=== PATIENT | male | born 1960 | race Caucasian/White ===

== ENCOUNTER 2021-04-09 13:49 | Emergency (ER) | payer BC, SELFPAY ==
[~2021-04-09] VITALS: Ht 170.2 cm; Wt 72.0 kg
[2021-04-09] MEDS ORDERED: LORazepam 2 mg/ml vial IV ONE (13:55)
--- NOTE | 2021-04-09 14:20 | NUR ---
seizure pads on.
--- NOTE | 2021-04-09 14:27 | NUR ---
pt to ct.
[2021-04-09 14:30] LABS: BASOPHILS # (AUTO) 0.1 X10'3 (0-0.2); BASOPHILS % (AUTO) 0.5 % (0-1); EOSINOPHILS # (AUTO) 0.1 X10'3 (0-0.9); EOSINOPHILS % (AUTO) 1.1 % (0-6); HEMATOCRIT 45.5 % (42.0-52.0); HEMOGLOBIN 14.6 g/dl (14.0-17.9); LYMPHOCYTES # (AUTO) 4.2 X10'3 (1.1-4.8); LYMPHOCYTES % (AUTO) 31.7 % (21-51); MEAN CORPUSCULAR HEMOGLOBIN 30.3 PG (27.0-31.0); MEAN CORPUSCULAR VOLUME 94.6 FL (78-98); MEAN PLATELET VOLUME 8.4 FL (7.4-10.4); MONOCYTES % (AUTO) 7.1 % (2-12); NEUTROPHILS % (AUTO) 59.6 % (42-75); PLATELET COUNT 237 X10'3 (140-440); RED BLOOD COUNT 4.81 X10'6 (4.70-6.10); RED CELL DISTRIBUTION WIDTH 13.6 % (11.5-14.5); WHITE BLOOD COUNT 13.4 X10'3 (4.5-11.0)
[2021-04-09] MEDS ORDERED: Levetiracetam-NS 500mg/100ml 100 ML IV STA (14:33)
[2021-04-09 14:44] LABS: PARTIAL THROMBOPLASTIN TIME 29 SECONDS (22-32)
[2021-04-09] MEDS: magnesium 2GM in 50ml NS 50 ML IV SCH ×2 (14:48→16:37)
[2021-04-09 14:51] LABS: ALANINE AMINOTRANSFERASE 26 U/L (12-78); ALBUMIN 4.2 G/DL (3.4-5.0); ALKALINE PHOSPHATASE 79 IU/L (46-116); ANION GAP 33 (8-16); ASPARTATE AMINO TRANSFERASE 25 U/L (10-37); BILIRUBIN,TOTAL 0.6 MG/DL (0.1-1.0); BLOOD UREA NITROGEN 18 MG/DL (7-18); BUN/CREATININE RATIO 10.9 (5.4-32.0); CALCIUM 9.2 MG/DL (8.5-10.1); CHLORIDE 99 MMOL/L (99-107); CREATININE 1.65 MG/DL (0.60-1.10); ETHANOL < 0.010 GM/DL (0.0-0.010); GLUCOSE 99 MG/DL (70-104); MAGNESIUM 2.8 MG/DL (1.5-2.4); POTASSIUM 4.4 MMOL/L (3.5-5.1); SODIUM 140 MMOL/L (135-145); TOTAL PROTEIN 8.5 G/DL (6.4-8.2); eGFR 42 ML/MIN
--- NOTE | 2021-04-09 15:24 | NUR ---
PATIENT HYPOXIC,90'S RA,PLACED ON 2L NC.
--- NOTE | 2021-04-09 15:24 | NUR ---
SPOUSE AT BEDSIDE.
[2021-04-09 16:04] LABS: URINE AMPHETAMINE SCREEN NEGATIVE (Neg); URINE BARBITUATE SCREEN NEGATIVE (Neg); URINE BENZODIAZEPINES SCREEN NEGATIVE (Neg); URINE CANNABINOID SCREEN POSITIVE (Neg); URINE COCAINE SCREEN NEGATIVE (Neg); URINE METHADONE SCREEN NEGATIVE (Neg); URINE OPIATE SCREEN NEGATIVE (Neg); URINE PHENCYCLIDINE SCREEN NEGATIVE (Neg)
[2021-04-09] MEDS ORDERED: LEVE10002 PO (18:13)
--- NOTE | 2021-04-09 18:38 | NUR ---
patient failed gait test, unable to ambulate independently, reports his legs are 'wobbly".
--- NOTE | 2021-04-09 18:39 | NUR ---
Dr. bella pt failed gait test.
[2021-04-09 19:23] VITALS: BP 128/60
== END 2021-04-09 19:25 | disposition home or self-care (01) ==
LOC: ER 13:50
DX: G40.909 Epilepsy, unspecified, not intractable, without status epilepticus (principal); Z79.899 Other long term (current) drug therapy
CPT/HCPCS: 36415; 70450; 71045; 80053; 80305; 80320; 83735; 85025; 85610; 85730; 93005; 96365; 96366; 96368; 96375; 99285; J1953; J2060; J3475; 96367